=== PATIENT | male | born 1990 | race Caucasian/White ===

== ENCOUNTER 2019-11-20 12:47 | Emergency (ER) | payer OTHER ==
[2019-11-20] MEDS ORDERED: HYDROcod/ACETAM 5/325 MG TABLET PO STA (13:55)
--- NOTE | 2019-11-20 13:57 | ED Physician Documentation ---
History of Present Illness - Stated complaint Stated Complaint: LT KNEE INJ - Chief complaint Chief Complaint: Ext Problem - History obtained from History obtained from: Patient - History of Present Illness Timing: Last night Pain level max: 7 Pain level now: 6 - Additonal information Additional information: Patient is a 29-year-old male who states that last night he tripped and fell, felt like his knee gave out on him. Complains of pain to the left foot, left ankle and left knee. Worse with walking and better with rest. He states he did strike his head. He is on Plavix as he does have coronary artery disease and stents. No loss of consciousness. No vomiting. Mild headache. Review of Systems Ten Systems: 10 systems reviewed and negative Constitutional: denies: Fever, Chills Ears: denies: Ear pain Nose: denies: Rhinorrhea / runny nose, Congestion Throat: denies: Sore throat Cardiac: denies: Chest pain / pressure Respiratory: denies: Cough GI: denies: Abdominal Pain, Nausea, Vomiting, Diarrhea Skin: denies: Rash Musculoskeletal: denies: Neck pain, Back pain Neurologic: denies: Focal weakness, Numbness, Seizure, Confused PD PAST MEDICAL HISTORY - Past Medical History Past Medical History: Yes Cardiovascular: Coronary artery disease - Past Surgical History Past Surgical History: Yes Cardiovascular: Coronary stent - Present Medications Home Medications: Ambulatory Orders Medication Instructions Recorded Confirmed HYDROcod/ACETAM 5/325 [[place] 5/325] 1 - 2 ea PO Q6H PRN #20 tablet 11/20/19 - Allergies Allergies/Adverse Reactions: Allergies Allergy/AdvReac Type Severity Reaction Status Date / Time No Known Drug Allergies Allergy Verified 11/20/19 13:12 - Living Situation Living Situation: reports: With family Living Arrangement: reports: At home PD ED PE NORMAL - Vitals Vital signs reviewed: Yes - General General: Alert and oriented X 3, No acute distress - HEENT HEENT: Moist mucous membranes - Neck Neck: Supple, no meningeal sign - Cardiac Cardiac: RRR - Respiratory Respiratory: No respiratory distress, Clear bilaterally - Abdomen Abdomen: Soft, Non tender, Non distended - Derm Derm: Warm and dry - Extremities Extremities: Other - Neuro Neuro: Alert and oriented X 3, viscose cellar charge hand 2-12 intact, No motor deficit, No sensory deficit, Normal speech Eye Opening: Spontaneous Motor: Obeys Commands Verbal: Oriented GCS Score: 15 - Psych Psych: Normal mood, Normal affect - Free text exam Free text exam: Mild diffuse tenderness around the left knee, mainly on the lateral aspect. Neurovascularly intact. No joint effusion. Ligaments are grossly intact, though limited exam secondary to pain. Mild swelling to the lateral malleolus of the left ankle with mild tenderness. Also mild tenderness at the base of the fifth metatarsal with swelling to the left foot. Neurovascular intact. Otherwise normal examination of the extremities. Results - Vitals Vitals: Vital Signs - 24 hr 11/20/19 11/20/19 11/20/19 13:13 15:09 15:30 Temperature 36.8 C Heart Rate 93 90 88 Respiratory 16 18 16 Rate Blood Pressure 133/81 H 137/85 H 146/101 H O2 Saturation 96 99 99 Oxygen O2 Source Room air - Rads (name of study) Head CT Radiology: Prelim report reviewed, EMP read contemporaneously, See rad report (No acute abnormality) Left knee x-ray Radiology: Prelim report reviewed, EMP read contemporaneously, See rad report (Nondisplaced fracture through the head of the fibula) Left ankle x-ray Radiology: Prelim report reviewed, EMP read contemporaneously, See rad report Left foot x-ray Radiology: Prelim report reviewed, EMP read contemporaneously, See rad report PD MEDICAL DECISION MAKING - ED course Complexity details: reviewed results, re-evaluated patient, considered diffe rential, d/w patient ED course: No acute findings on x-ray of the foot or ankle. No acute findings on head CT. Patient does have a nondisplaced left fibular head fracture. Placed in a long- leg posterior splint. Will prescribe pain medication for home. Given crutches. We will have him follow-up with orthopedics for further care. Patient counseled regarding signs and symptoms for which I believe and urgent re- evaluation would be necessary. Patient with good understanding of and agreement to plan and is comfortable going home at this time This document was made in part using voice recognition software. While efforts are made to proofread this document, sound alike and grammatical errors may occur. Departure - Departure Disposition: 01 Home, Self Care Clinical Impression: Left ankle sprain Qualifiers: Encounter type: initial encounter Involved ligament of ankle: unspecified ligament Qualified Code(s): S93.402A - Sprain of unspecified ligament of left ankle, initial encounter Sprain of left foot Qualifiers: Encounter type: initial encounter Qualified Code(s): S93.602A - Unspecified sprain of left foot, initial encounter Fracture, fibula, proximal Qualifiers: Encounter type: initial encounter Fracture type: closed Fracture morphology: unspecified fracture morphology Laterality: left Qualified Code(s): S82.832A - Other fracture of upper and lower end of left fibula, initial encounter for closed fracture Condition: Good Instructions: ED Sprain Ankle W X Ray, ED Sprain Foot, ED Fx Lower Ext Follow-Up: [facility] [Provider Group] - Within 1 week Prescriptions: HYDROcod/ACETAM 5/325 [[place] 5/325] 1 - 2 ea PO Q6H PRN #20 tablet PRN Reason: Pain Comments: There is a small crack in your proximal fibula. This should heal well. You are to stay in the splint until released by orthopedics. They may change you into a cast. Follow-up with them in approximately 1 week. Do not drink alcohol or drive while on narcotic pain medicine. Note that many narcotic pain relievers also contain tylenol/acetaminophen. Please ensure that your total dose of acetaminophen from all sources does not exceed 3 grams (3000mg) per day. You may constipated on this medication, take a stool softener such as "Colace" twice a day while you are on it. Also recommend a [id number]-bmw-focgibb laxative such as senna or MiraLAX any day that you do not have a bowel movement. If you received narcotic pain medication in the emergency department, do not drive or operate machinery for the next 24 hours. Discharge Date/Time: 11/20/19 16:28
--- NOTE | 2019-11-20 14:32 | CT Report ---
PROCEDURE: HEAD WO INDICATIONS: headache s/p fall, pt on plavix TECHNIQUE: Noncontrast 4.5 mm thick angled axial sections acquired from the foramen magnum to the vertex. For r adiation dose reduction, the following was used: automated exposure control, adjustment of mA and/or kV according to patient size. COMPARISON: None. FINDINGS: Image quality: Excellent. CSF spaces: Basal cisterns are patent. No extra-axial fluid collections. Ventricles are normal in size and shape. Brain: No intracranial hemorrhage, mass, or mass effect. Helms-white matter interface is preserved. Skull and face: Calvarium and visualized facial bones are intact, without suspicious lesions. Sinuses: Visualized sinuses demonstrate small mucosal polyp or sinus retention cyst within the right sphenoid sinus. Mastoid air cells are clear. IMPRESSION: 1. No acute intracranial abnormality. Reviewed by: Bharathi Gann MD on 11/20/2019 2:30 PM PDT Approved by: Bharathi Gann MD on 11/20/2019 2:30 PM PDT Station ID: [id number]
--- NOTE | 2019-11-20 15:37 | XRAY Report ---
PROCEDURE: Knee 4 View LT INDICATIONS: L knee pain s/p fall TECHNIQUE: 4 views of the left knee(s) were acquired. COMPARISON: None. FINDINGS: Bones: Nondisplaced fracture of the left fibular head. Overlying soft tissue edema. Remainder the vis ualized osseous structures appear intact. No suspicious bony lesions. Soft tissues: No joint effusion. No suspicious soft tissue calcifications. IMPRESSION: Nondisplaced proximal left fibular fracture at the level of the head of the fibula. Reviewed by: Henrik Nguyen MD on 11/20/2019 3:36 PM PDT Approved by: Henrik Nguyen MD on 11/20/2019 3:36 PM PDT Station ID: [id number]
--- NOTE | 2019-11-20 15:39 | XRAY Report ---
PROCEDURE: Ankle 3 View LT INDICATIONS: L ankle pain s/p fall TECHNIQUE: 3 views of the ankle were acquired. COMPARISON: None. FINDINGS: Bones: No fractures or dislocations. Ankle mortise is normally aligned. No suspicious bony lesions . Soft tissues: Mild soft tissue swelling overlying the lateral malleolus. No tibiotalar joint effusio n. Achilles tendon appears normal. IMPRESSION: Lateral malleolar soft tissue swelling without underlying fracture or dislocation. Reviewed by: Henrik Nguyen MD on 11/20/2019 3:38 PM PDT Approved by: Henrik Nguyen MD on 11/20/2019 3:38 PM PDT Station ID: [id number]
--- NOTE | 2019-11-20 15:42 | XRAY Report ---
PROCEDURE: Foot 3 View LT INDICATIONS: L foot pain s/p fall TECHNIQUE: 3 views of the foot were acquired. COMPARISON: None FINDINGS: Bones: No acute fractures or dislocations. No suspicious bony lesions. Soft tissues: Mild soft tissue swelling of the lateral malleolus. No tibiotalar joint effusion. Ach illes tendon appears normal. IMPRESSION: Mild lateral malleolus soft tissue swelling without underlying fracture or dislocation. Reviewed by: Henrik Nguyen MD on 11/20/2019 3:41 PM PDT Approved by: Henrik Nguyen MD on 11/20/2019 3:41 PM PDT Station ID: [id number]
[2019-11-20 16:02] VITALS: BP 146/101
== END 2019-11-20 16:28 | disposition home or self-care (01) ==
LOC: ED 12:47
DX: S82.832A Other fracture of upper and lower end of left fibula, initial encounter for closed fracture (principal); S93.402A Sprain of unspecified ligament of left ankle, initial encounter; S93.602A Unspecified sprain of left foot, initial encounter; W01.0XXA Fall on same level from slipping, tripping and stumbling without subsequent striking against object, initial encounter; I25.10 Atherosclerotic heart disease of native coronary artery without angina pectoris; Z79.01 Long term (current) use of anticoagulants
CPT/HCPCS: 29505; 70450; 73564; 73610; 73630; 99284; A9270